=== PATIENT | male | born 1965 | race Caucasian/White ===

== ENCOUNTER 2022-04-16 14:47 | Outpatient (CLI) | payer OTHER, SELFPAY ==
[2022-04-16 21:46] LABS: Albumin* 4.4 g/dL (3.3-5.0); Chloride* 101 mmol/L (96-114)
[2022-04-16 21:47] LABS: Potassium* 3.7 mmol/L (3.6-5.1); Sodium* 142 mmol/L (135-149)
[2022-04-16 21:49] LABS: Alkaline Phosphatase* 66 U/L (40-150); Aspartate Amino Transferase* 29 U/L (12-35); Bilirubin Total* 1.2 mg/dL (0.1-1.5); Blood Urea Nitrogen* 16 mg/dL (7-30); Carbon Dioxide* 28 mmol/L (20-32); Creatinine* 0.8 mg/dL (0.5-1.5); Estimated Glomerular Filt Rate 105 ml/min; Glucose* 92 mg/dL (60-115)
[2022-04-16 21:50] LABS: Alanine Aminotransferase* 29 U/L (4-50); Calcium* 9.7 mg/dL (8.4-10.6)
[2022-04-16 22:18] LABS: PSA Screen* 0.53 ng/mL (0.10-4.00)
[2022-04-18 23:39] LABS: LDL Cholesterol, Direct 73 mg/dL (0-129)
== END 2022-04-16 14:48 | disposition home or self-care (01) ==
PROVIDERS: PCP Family Medicine; Visit Provider Family Medicine
DX: I10 Essential (primary) hypertension (principal); E78.5 Hyperlipidemia, unspecified; L57.0 Actinic keratosis; E11.9 Type 2 diabetes mellitus without complications; Z12.5 Encounter for screening for malignant neoplasm of prostate
CPT/HCPCS: 80053; 83721; 84153

== ENCOUNTER 2022-09-22 08:04 | Outpatient (CLI) | payer OTHER, SELFPAY | END 2022-09-22 08:05 | disposition home or self-care (01) | LOC: OP CLINIC 08:06 | PROVIDERS: PCP Family Medicine; Visit Provider Surgery | DX: Z12.11 Encounter for screening for malignant neoplasm of colon (principal); K63.5 Polyp of colon; K63.89 Other specified diseases of intestine; K62.1 Rectal polyp; K57.30 Diverticulosis of large intestine without perforation or abscess without bleeding; Z86.010 Personal history of colon polyps | CPT/HCPCS: 45380; 45385; 88305; 99153; J2250; J3010 ==

== ENCOUNTER 2023-08-31 14:45 | Outpatient (CLI) | payer OTHER, SELFPAY | END 2023-08-31 14:46 | disposition home or self-care (01) | PROVIDERS: PCP Family Medicine; Visit Provider Family Medicine | DX: E78.2 Mixed hyperlipidemia (principal); Z12.5 Encounter for screening for malignant neoplasm of prostate | CPT/HCPCS: 80053; 80061; G0103 ==